=== PATIENT | female | born 1955 | race Caucasian/White ===

== ENCOUNTER 2019-10-19 21:18 | Inpatient (IN) ==
[2019-10-19] MEDS ORDERED: ASPIRIN PO ONE ×2 (21:56→22:15)
[2019-10-19 22:19] LABS: BASO# 0.05 X1000 (0.0-0.2); BASO% 0.5 % (0.0-0.8); EOS# 0.11 X1000 (0.0-0.7); EOS% 1.1 % (0.0-10.0); HEMATOCRIT 39.7 % (37.0-47.0); HEMOGLOBIN 13.7 g/dL (12.0-16.0); IMM GRAN# 0.04 X1000 (0.0-0.04); IMM GRAN% 0.4 % (0.0-0.5); LYMPH# 2.85 X1000 (1.2-3.4); LYMPH% 28.1 % (20.5-51.1); MCH 30.9 PG (27-31); MCHC 34.5 g/dL (33-37); MCV 89.6 FL (81-99); MONO# 1.19 X1000 (0.11-0.59); MONO% 11.7 % (1.7-9.3); MPV 11.6 FL (7.4-10.4); NEUT# 5.91 X1000 (1.4-6.5); NEUT% 58.2 % (42.2-75.2); PLT 234 X1000 (130-400); RBC 4.43 XMIL (4.2-5.4); RDW 12.3 % (11.5-14.5); WBC 10.15 X1000 (4.8-10.8)
[2019-10-19 22:28] LABS: AGAP 12; BUN 12 mg/dL (8-22); CALCIUM 9.3 mg/dL (8.8-10.2); CHLORIDE 90 mmol/L (98-107); COSMO 263; CREATININE 0.7 mg/dL (0.5-0.9); ESTIMATED GFR > 60; GLUCOSE 108 mg/dL (70-104); POTASSIUM 3.7 mmol/L (3.5-5.1); SODIUM 131 mmol/L (136-145); TCO2 29 mmol/L (25-35)
[2019-10-19] MEDS ORDERED: NS 250 ML IV ONE (22:43)
--- NOTE | 2019-10-19 22:58 | PROVIDER DOCUMENTATION ---
This chart was entered by Fawn Thomas Scribe, acting as scribe for Stephanie Coats MD. HPI-Chest Pain - General Chief Complaint: Chest Pain Stated Complaint: CHEST PAIN Time Seen by Provider: 10/19/19 21:31 Source: patient Allergies/Adverse Reactions: Patient Allergies Allergy/AdvReac Type Severity Reaction Status Date / Time egg Allergy Unknown Verified 10/19/19 21:48 Penicillins Allergy RASH Verified 10/19/19 21:48 Home Medications: Home Medication List Medication Instructions Recorded Confirmed Last Taken Type Citalopram [Celexa] 40 mg PO DAILY 06/28/13 10/19/19 Unknown History Losartan [Cozaar] 50 mg PO DAILY 06/28/13 10/19/19 Unknown History Divalproex E.r. [Depakote ER] 500 mg PO QHS 10/19/19 10/19/19 Unknown History Estradiol [Yuvafem] 10 mg PO DIRECTED 10/19/19 10/19/19 Unknown History Hydrochlorothiazide 50 mg PO QAM 10/19/19 10/19/19 Unknown History Metoprolol Succinate E.r. [Toprol 12.5 mg PO QAM 10/19/19 10/19/19 Unknown History Xl] Risperidone [Risperdal] 2 mg PO BID 10/19/19 10/19/19 Unknown History - History of Present Illness-CP Nature of Presenting Problem: 64 y/o female with history of hypertension and hyperlipidmia presents to the ED with complaint of mid sternal pressure type chest pain worsening with exertion as well as worsening dyspnea for the past week but much worse and associated with nausea today. Denies diaphoresis. She states she is barely able to make it up her stairs which is abnormal for her. Location: reports: substernal Chest Pain Radiation: reports: no radiation Quality of Pain: reports: pressure Onset/Duration: 1 week ago Timing: getting worse Context/Activities at Onset: reports: light activity Modifying Factors: worse with: exercise, movement Associated Symptoms: reports: nausea. denies: diaphoresis Nitro Today/Relief: no nitro taken today Aspirin Treatment Today: 81 mg x 3 Prior Chest Pain/Cardiac Workup: reports: no prior cardiac workup Similar Symptoms Previously?: No Recently Seen Here or By Another Healthcare Provider: No Review of Systems - Adult - REVIEW OF SYSTEMS - ADULT Constitutional: reports: no symptoms reported Eyes: reports: no symptoms reported Ears, Nose, Mouth & Throat: reports: no symptoms reported Cardiovascular: reports: chest pain. denies: palpitations, syncope Respiratory: reports: dyspnea on exertion, shortness of breath. denies: cough Gastrointestinal: reports: nausea. denies: diarrhea, vomiting Genitourinary: reports: no symptoms reported Musculoskeletal: reports: no symptoms reported Integumentary: reports: no symptoms reported Neurological: reports: no symptoms reported Psychiatric: reports: no symptoms reported Endocrine: reports: no symptoms reported Hematologic/Lymphatic: reports: no symptoms reported Allergic/Immunologic: reports: no symptoms reported All Other Systems: Reviewed and Negative Past History - Adult - PAST MEDICAL HISTORY-ADULT Review of Records: reports: Old Records Reviewed, Nursing Assessment Review, Medications Reviewed Major Childhood Illnesses: reports: denies history Cardiovascular: reports: HTN, hyperlipidemia Respiratory: reports: asthma Gastrointestinal: reports: denies history Obstetrical/Gynecological: reports: denies history Genitourinary: reports: denies history Musculoskeletal: reports: denies history Neurological: reports: denies history Psychiatric: reports: bipolar Endocrine/Immune: reports: denies history Other Conditions: reports: denies history - PRIOR SURGERIES/PROCEDURES Surgical/Procedure History: reports: hysterectomy, other (nose surgery, breast augmentation) - IMMUNIZATION STATUS Childhood Immunizations: See Nurse Assessment Flu Vaccine: See Nurse Assessment - FAMILY HISTORY Family History: reviewed, not pertinent - SOCIAL HISTORY Smoking: non-smoker Physical Exam-General - PHYSICAL EXAM-ADULT Initial Vital Signs Reviewed: Yes - CONSTITUTIONAL General Appearance: alert, no apparent distress - EYES Eyes: PERRL/EOMI - HEAD, EARS, NOSE, MOUTH & THROAT HENMT: normocephalic/atraumatic, moist mucous membranes - NECK Neck: full range of motion, supple - RESPIRATORY Respiratory: chest non-tender, lungs clear, normal breath sounds. negative: rales, rhonchi, wheezing - CARDIOVASCULAR Cardiovascular: normal peripheral pulses, regular rate, rhythm - GASTROINTESTINAL (ABDOMEN) Abdominal Exam: non tender, soft - MUSCULOSKELETAL Extremity: normal gait, no pedal edema - SKIN Integumentary: normal color, warm/dry - NEUROLOGIC Neurologic: grossly normal, no motor/sensory deficits - PSYCHIATRIC Psych/Mental Status: normal mood/affect, normal thought content, normal thought process - HEART Score HEART Score: History: Highly Suspicious HEART Score: ECG: Normal HEART Score: Age: 45-65 Years HEART Score: Risk Factors for Atherosclerotic Disease: 1 or 2 Risk Factors HEART Score: Troponin: < or = Normal Limit Total HEART Score:: 4 Progress - PLAN OF CARE/RESULTS Progress/Plan/Lab Results: Vital Signs - 8 hr 10/19/19 21:22 Temperature 98.6 F Pulse Rate 73 Respiratory Rate 18 Blood Pressure 182/86 O2 Sat by Pulse Oximetry 97 Laboratory Results - last 24 hr 10/19/19 10/19/19 10/19/19 21:35 21:35 21:35 WBC RBC Hgb Hct MCV MCH MCHC RDW Std Deviation Plt Count MPV Immature Gran % (Auto) Neut % (Auto) Lymph % (Auto) Lamar % (Auto) Eos % (Auto) Baso % (Auto) Immature Gran # (Auto) Neut # (Auto) Lymph # (Auto) Lamar # (Auto) Eos # (Auto) Baso # (Auto) Sodium 131 L Potassium 3.7 Chloride 90 L Carbon Dioxide 29 Anion Gap 12 BUN 12 Creatinine 0.7 Estimated GFR/1.73 m2 > 60 BUN/Creatinine Ratio 17 Glucose 108 H Calculated Osmolality 263 Calcium 9.3 Troponin T High Sens 9 Dcn-P-Waidjmhvqqa Pept 196 10/19/19 21:35 WBC 10.15 RBC 4.43 Hgb 13.7 Hct 39.7 MCV 89.6 MCH 30.9 MCHC 34.5 RDW Std Deviation 12.3 Plt Count 234 MPV 11.6 H Immature Gran % (Auto) 0.4 Neut % (Auto) 58.2 Lymph % (Auto) 28.1 Lamar % (Auto) 11.7 H Eos % (Auto) 1.1 Baso % (Auto) 0.5 Immature Gran # (Auto) 0.04 Neut # (Auto) 5.91 Lymph # (Auto) 2.85 Lamar # (Auto) 1.19 H Eos # (Auto) 0.11 Baso # (Auto) 0.05 Sodium Potassium Chloride Carbon Dioxide Anion Gap BUN Creatinine Estimated GFR/1.73 m2 BUN/Creatinine Ratio Glucose Calculated Osmolality Calcium Troponin T High Sens Byi-M-Iqhjxhoostk Pept Orders Category Date Time Status IV Insertion ORDERED Care 10/19/19 21:56 Completed CHEST-1 VIEW [RAD] Stat Exams 10/19/19 21:56 Taken BASIC METABOLIC PANEL [CHEM] Stat Lab 10/19/19 21:35 Completed CBC WITH DIFF [HEME] Stat Lab 10/19/19 21:35 Completed PRO B-NATRIURETIC PEPTIDE Stat Lab 10/19/19 21:35 Completed TROPONIN T HIGH SENSITIVITY Stat Lab 10/19/19 21:35 Completed 0.9% Sodium Chloride Inj [Ns] 250 ml Med 10/19/19 22:43 Active IV 999 mls/hr Aspirin Med 10/19/19 21:56 Discontinued 325 mg PO NOW ONE Aspirin Med 10/19/19 22:15 Discontinued 81 mg PO NOW ONE chest pain and [facility] will further evaluate for causes including but not limited to ACS, arrythmia, CHF, pna, ptx, pe Result Diagrams: 10/19/19 21:35 10/19/19 21:35 - REASSESSMENT Reassessment #1 Status: improving (no chest pain or dyspnea will in the ED and ED work up unremarkable but presentation concerning for ACS. Will admit for further evaluation and treatment. Discussed case with Dr. Diaz, Hospitalist who will see and admit pt.) - EKG 1 Time of EKG reading by physician:: 21:27 EKG Read and Signed by:: Stephanie Coats EKG Interpretation (*Must complete 3 of following elements*): Normal Rate: 74 Rhythm: NSR [place]: normal [place] Interval: normal - XRAY 1 XRAY Study: Chest Impression: Normal Departure - Departure Date of Disposition Decision: 10/19/19 Time of Disposition Decision: 22:53 DIAGNOSIS: Chest pain Qualifiers: Chest pain type: unspecified Qualified Code(s): R07.9 - Chest pain, unspecified Disposition: ADMITTED INPATIENT 09 Certified Medical Emergency: Emergent Condition: Good - Critical Care Note This patient required my direct & personal management of CC.: No Attestation - Physician/ JOE Attestation Patient care was provided by Advanced Practice Provider:: No The physician spent face to face time with patient:: Yes Advanced Practice Provider documentation review:: Supervising physician onsite and consulted in the evaluation and care of this patient. The physician did have a face to face encounter with the patient. This chart was documented by the indicated scribe, (Fawn Thomas, Daryn) and accurately reflects the services I performed and decisions made by , Stephanie Coats MD, as attested by the provider's signature.
[2019-10-20] MEDS: NITROGLYCERIN TOP SCH ×4 (00:27→17:27)
[2019-10-20] MEDS: NS 1,000 ML IV SCH ×2 (00:27→13:35)
[2019-10-20] MEDS ORDERED: ESTRADIOL PO SCH (00:57)
[2019-10-20] MEDS: TYLENOL PO PRN ×2 (03:56→17:26)
[2019-10-20] MEDS: MORPHINE IV PRN ×2 (03:56→09:24)
[2019-10-20] MEDS: PRILOSEC PO SCH (06:32)
--- NOTE | 2019-10-20 07:11 | HISTORY AND PHYSICAL ---
CHIEF COMPLAINT: Mid/left-sided chest pain which has been ongoing for several weeks. HISTORY OF PRESENT ILLNESS: Ms. Ana Kee is a 64-year-old female who presents to the hospital because of mid/left-sided chest pain which has been ongoing for several weeks and got worse prior to admission. On a scale of 0 to 10, it is about 8/10. It is dull and constant. It radiates to her back. Is made worse with activity and improved with rest. She has had associated palpitations and shortness of breath. No diaphoresis. She did have a cardiac stress test in January of 2019. She denied having any coronary angiograms in the past. The patient now admitted to the floor now for further management. PAST MEDICAL HISTORY: Hypertension. SOCIAL HISTORY: N cigarette smoking, alcohol, or drug use. ALLERGIES: She is allergic to penicillin. PAST SURGICAL HISTORY: She has had nasal surgery, breast reductive surgery, left knee arthroscopy, surgery on both feet, as well as a hysterectomy. MEDICATIONS: Include the following: Alendronate 70 mg p.o. as directed, citalopram 40 mg p.o. daily, Depakote ER 500 mg p.o. at bedtime, estradiol 10 mg p.o. vaginal as directed, hydrochlorothiazide 50 mg p.o. q.a.m., losartan 50 mg p.o. once a day, metoprolol 12.5 mg p.o. q.a.m., Risperdal 2 mg p.o. at bedtime, simvastatin 20 mg p.o. at bedtime, solifenacin succinate 10 mg p.o. once a day. REVIEW OF SYSTEMS: Constitutional: No fever. CONSTRUCTION SCHEDULER: Has headaches. Eyes: Blurred vision. ENT: No sinus problems or hearing loss. Respiratory: She has a cough. GI: She has nausea but no abdominal pain. : No dysuria. Dermatology: No skin lesions. Hematology: No bleeding problems. Musculoskeletal: Has joint pains. Psychiatry: Has depression. Endocrinology: No thyroid disease or diabetes. Allergic/Immunologic: No symptoms suggestive of allergic rhinitis. PHYSICAL EXAMINATION: VITAL SIGNS: Temperature 98.6 degrees, pulse of 70, respiratory rate 18, blood pressure 182/86, oxygen saturation 97%. HEENT: Atraumatic, normocephalic. She is anicteric. No oral lesions noted. NECK: No lymphadenopathy or thyromegaly. CARDIOVASCULAR SYSTEM: S1, S2. RESPIRATORY SYSTEM: Has evidence of good air entry bilaterally. ABDOMEN: Soft, nontender. No masses felt. EXTREMITIES: No evidence of edema. CENTRAL NERVOUS SYSTEM: No obvious focal deficits noted. LABS: WBCs 10.15, hematocrit is 39.7, with a platelet count of 234,000. D-dimer is 0.39. Sodium is 131, potassium 3.7, chloride is 90, bicarb is 29, BUN is 12, creatinine 0.7. ASSESSMENT AND PLAN: 1. Chest pain, rule out acute coronary syndrome. Place patient on telemetry and get serial cardiac enzymes. Obtain EKG. Maintain patient on aspirin, beta-trent, as well as nitroglycerin paste as needed. Obtain lipid panel. Consult with cardiology. 2. Hypertension. Optimize blood pressure control. 3. Hyperlipidemia. Check lipid panel. 4. Bipolar disorder. Continue appropriate psychiatric medications. 5. Deep vein thrombosis prophylaxis. Lovenox. 6. Gastrointestinal prophylaxis. Proton pump inhibitor. cc: Prosper Beebe MD
--- NOTE | 2019-10-20 07:16 | Diag Imaging Result Doc PS360 ---
EXAM: CHEST-1 VIEW - 10/19/2019 HISTORY: chest pain TECHNIQUE: Portable one view chest COMPARISON: 01/06/2016 FINDINGS: Heart size is normal. The lungs appear clear. There is no pleural effusion or pneumothorax identified. IMPRESSION: No evidence of acute disease. Electronically signed by Walker Allred 10/20/2019 7:14 AM
[2019-10-20] MEDS ORDERED: RISPERDAL PO SCH ×2 (09:00→21:00)
[2019-10-20] MEDS ORDERED: TOPROL XL PO SCH (09:00)
[2019-10-20] MEDS: HYDROCHLOROTHIAZIDE PO SCH (09:30)
[2019-10-20] MEDS: ASPIRIN PO SCH (09:30)
[2019-10-20] MEDS: CELEXA PO SCH (09:31)
[2019-10-20] MEDS: ESTRACE VAGINAL CREAM VAG SCH (09:31)
[2019-10-20] MEDS: COZAAR PO SCH (09:31)
[2019-10-20] MEDS: VESICARE PO SCH (09:52)
--- NOTE | 2019-10-20 11:21 | EKG Report ---
Test Performed on : 10/20/2019 09:27:53 AM Test Reason : CP Blood Pressure : / mmHG Vent. Rate : 068 BPM Atrial Rate : 068 BPM P-R Int : 174 ms QRS Dur : 064 ms QT Int : 408 ms P-R-T Axes : 053 018 049 degrees QTc Int : 433 ms Normal sinus rhythm. Normal ECG When compared with ECG of 20-OCT-2019 08:41, (Unconfirmed) No significant change was found Confirmed by Argelia VAZQUEZ, Reji Gilbert ([id number]) on 10/21/2019 9:25:29 AM
--- NOTE | 2019-10-20 11:25 | EKG Report ---
Test Performed on : 10/19/2019 9:27:17 PM Test Reason : chest pain Blood Pressure : / mmHG Vent. Rate : 074 BPM Atrial Rate : 074 BPM P-R Int : 164 ms QRS Dur : 068 ms QT Int : 402 ms P-R-T Axes : 059 013 054 degrees QTc Int : 446 ms Normal sinus rhythm. Normal ECG When compared with ECG of 14-APR-2017 19:58, No significant change was found Confirmed by Argelia VAZQUEZ, Reji Gilbert ([id number]) on 10/21/2019 9:25:14 AM
--- NOTE | 2019-10-20 11:26 | EKG Report ---
Test Performed on : 10/20/2019 08:41:32 AM Test Reason : CHEST PAIN Blood Pressure : / mmHG Vent. Rate : 072 BPM Atrial Rate : 072 BPM P-R Int : 180 ms QRS Dur : 070 ms QT Int : 402 ms P-R-T Axes : 061 021 048 degrees QTc Int : 440 ms Normal sinus rhythm. Normal ECG When compared with ECG of 19-OCT-2019 21:27, (Unconfirmed) No significant change was found Confirmed by Argelia VAZQUEZ, Reji Gilbert ([id number]) on 10/21/2019 9:25:27 AM
--- NOTE | 2019-10-20 12:47 | CARDIOLOGY CONSULTATION ---
DATE: 10/20/2019 REASON FOR CONSULTATION: Cardiology was consulted for chest pain. HISTORY OF PRESENT ILLNESS: Ms. Ana Ramirez is a 64-year-old, lady, who presented to the hospital with left-sided retrosternal chest pain. She has been having this chest pain going on for at least 4 to 6 weeks. Gradually, symptoms have gotten worse. She comes with complaints of dull retrosternal chest discomfort, she puts it as 8/10, radiating to the back and left shoulder. Symptoms have gradually worsened, and she has also noticed exertional component of chest pain over the last few weeks. She had a Cardiolite stress test in 01/2019. Per patient, this was done at [facility]. They were unremarkable. There is no history of palpitations. She has had some shortness of breath. There is no dizziness or syncope. There is no associated diaphoresis. REVIEW OF SYSTEMS: A 14-point review of systems was done. GI: There is no history of nausea, vomiting, diarrhea. There is no history of hematemesis or melena. Central Nervous System: No focal weakness to suggest a CVA or TIA. Genitourinary: There is no dysuria or hematuria. Respiratory: There is no history of cough, expectoration, hemoptysis. Constitutional: There is no history of fevers or chills. PAST MEDICAL/SURGICAL HISTORY: 1. Hypertension. 2. Hyperlipidemia. 3. Left knee arthroscopy. 4. Surgery on both feet. 5. Hysterectomy. 6. Breast reductive surgery. 7. Bipolar disorder. 8. Gastroesophageal reflux disease. HOME MEDICATIONS: Include alendronate 70, simvastatin 20, VESIcare, Risperdal 2 mg p.o. at bedtime, metoprolol 25 mg every a.m., hydrochlorothiazide 50, Depakote 500 mg p.o. at bedtime, Celexa 40, losartan 50. ALLERGIES: She is allergic to eggs and penicillin. PHYSICAL EXAMINATION: Vital Signs: Blood pressure when she came in was 182/86, today 131/60. Cardiovascular: Normal jugular venous pressure. There is no thyromegaly. No carotid bruit. First and second heart sounds were heard. There was no S3 gallop. Abdomen: Soft, nontender. There was no guarding or rigidity. Bowel sounds were heard. Central Nervous System: Alert and oriented, was moving all 4 extremities. Extremities: No pedal edema. HEENT: Atraumatic, normocephalic. Pupils were equal and reacting to light. Neck: No lymphadenopathy. Trachea was central. No thyromegaly. LABORATORY DATA: WBC 10.15, RBC 4.43, hematocrit 30.7, platelet count 234,000. Sodium 131, potassium 3.5, BUN 12, creatinine 0.7. Cardiac enzymes negative. SOCIAL HISTORY: The patient does not smoke, does not drink. FAMILY HISTORY: Her mother had coronary artery disease in her 30s. Father had stroke. Siblings do not have any known coronary artery disease. ASSESSMENT AND PLAN: Ms. Ana Ramirez is a 64-year-old, lady with history of hypertension, hyperlipidemia, bipolar disorder, strong family history of coronary artery disease, who comes with complaints of anginal symptoms. She has been ruled out for myocardial infarction by cardiac enzymes. Electrocardiogram was unremarkable. Given her ongoing symptoms, the patient has unstable angina. Given this, I have recommended that she undergo a left heart catheterization. Risks, benefits, and alternatives were explained. The patient will be set up for left heart catheterization in the morning. Per patient, she had a stress test echocardiogram done at [facility], which was unremarkable last year. For hypertension, continue with her current medications. For bipolar disorder, continue with her home medications. For hyperlipidemia, continue with simvastatin. Thank you for the consult. Will follow hospital course. cc: Joe Arteaga MD
[2019-10-20 13:56] LABS: URINE SOURCE CLEAN CATCH
[2019-10-20 14:05] LABS: BILIRUBIN URINE NEGATIVE (NEGATIVE); BLOOD URINE NEGATIVE (NEGATIVE); COLOR STRAW; GLUCOSE URINE NEGATIVE (NEGATIVE); KETONE URINE NEGATIVE (NEGATIVE); LEUKOCYTES URINE MODERATE (NEGATIVE); NITRITE URINE NEGATIVE (NEGATIVE); PROTEIN URINE NEGATIVE (NEGATIVE); SP GRAVITY URINE 1.006; TURBIDITY URINE CLEAR (CLEAR); UROBILINOGEN URINE NORMAL (NORMAL)
[2019-10-20 14:07] LABS: UR EPITHELIAL CELLS <10 /HPF (<10); URINE BACTERIA NEGATIVE /HPF; URINE RBC <10 /HPF (<10)
[2019-10-20] MEDS: TOPROL XL PO SCH (20:24)
[2019-10-20] MEDS ORDERED: DEPAKOTE ER PO SCH (21:00)
[2019-10-20] MEDS ORDERED: ZOCOR PO SCH (21:00)
[2019-10-21] MEDS: NITROGLYCERIN TOP SCH ×3 (00:28→13:12)
[2019-10-21] MEDS: NS 1,000 ML IV SCH ×2 (00:28→04:46)
[2019-10-21] MEDS: PRILOSEC PO SCH (06:33)
[2019-10-21 07:39] LABS: HEMOGLOBIN 13.2 g/dL (12.0-16.0); MCH 31.2 PG (27-31); MCV 94.6 FL (81-99); RBC 4.23 XMIL (4.2-5.4); RDW 13.2 % (11.5-14.5); WBC 7.58 X1000 (4.8-10.8)
[2019-10-21 07:40] LABS: INR 0.96; PROTIME 12.9 Seconds (11.0-16.0)
[2019-10-21 07:49] LABS: CHOLESTEROL 159 mg/dL (0-200); HDL 49 mg/dL (45-65); LDL 79 mg/dL; TRIGLYCERIDES 157 mg/dL (35-135); VLDL 31 mg/dL
[2019-10-21 08:14] LABS: AGAP 9; BUN 7 mg/dL (8-22); CALCIUM 8.7 mg/dL (8.8-10.2); CHLORIDE 101 mmol/L (98-107); COSMO 273; CREATININE 0.6 mg/dL (0.5-0.9); ESTIMATED GFR > 60; GLUCOSE 90 mg/dL (70-104); POTASSIUM 3.6 mmol/L (3.5-5.1); SODIUM 138 mmol/L (136-145); TCO2 28 mmol/L (25-35)
[2019-10-21] MEDS ORDERED: HEPARIN 1000 UNITS/NS 2,000 UNIT/1,000 ML IV.SOLN ONE (08:35)
[2019-10-21] MEDS ORDERED: ISOPTIN ONE (08:46)
[2019-10-21] MEDS ORDERED: LOVENOX SUBQ SCH (09:00)
[2019-10-21] MEDS: ASPIRIN PO SCH (09:31)
[2019-10-21] MEDS: CELEXA PO SCH (09:32)
[2019-10-21] MEDS: COZAAR PO SCH (09:32)
[2019-10-21] MEDS: HYDROCHLOROTHIAZIDE PO SCH (09:32)
[2019-10-21] MEDS: ESTRACE VAGINAL CREAM VAG SCH (09:32)
[2019-10-21] MEDS: TOPROL XL PO SCH (09:33)
[2019-10-21] MEDS: VESICARE PO SCH (09:33)
[2019-10-21] MEDS ORDERED: DILAUDID ONE (09:37)
[2019-10-21] MEDS ORDERED: VERSED ONE (09:37)
--- NOTE | 2019-10-21 10:39 | CARDIAC CATH REPORT ---
PROCEDURE NAME: - CHIEF COMPLAINT: Unstable angina. PROCEDURES PERFORMED: 1. Left heart catheterization. 2. Selective coronary angiography. 3. Left ventriculogram. PROCEDURE IN DETAIL: Ms. Ramirez was brought to the catheterization laboratory in a fasting state. Informed consent was obtained. Prepped in the usual fashion. She was anesthetized over the right radial after an Reji's test proved adequate. A 5-Kazakh sheath was placed via true Seldinger technique. A radial cocktail was administered. Catheters were introduced. Hemodynamic measurements were made in the ascending thoracic aorta. Coronary angiography was performed in multiple views using JL3.5 and JR4 diagnostic catheters. Left heart catheterization and left ventriculogram were performed using the JR4. At the conclusion of the procedure, all sheaths and catheters were removed. There was 60 mL of IV contrast and 5-10 mL of blood loss. No apparent complications. FINDINGS: 1. The left main originates from the left coronary cusp. It appears normal. 2. The left anterior descending originates from the left main. It appears angiographically normal throughout its course. It does wrap around and supplies a significant portion of the distal inferior wall. In the late mid vessel, there does appear to be a possible area of a myocardial bridge. 3. The circumflex originates from the left main. It is a large, normal vessel. 4. The right coronary artery originates from the right coronary cusp. It is nondominant and angiographically normal. 5. Ejection fraction is 65% with normal wall motion. 6. Left ventricle pressure 131/5 with an LVEDP of 16. Aortic blood pressure 134/60 with a mean of 93. ASSESSMENT: Ms. Ramirez is a 64-year-old female who presented with chest pain, concerning for unstable angina. PLAN: She has no flow-limiting lesions. She has essentially angiographically normal arteries. Her EDP was 16, ejection fraction of 65%. She appears to have a relatively normal study. I have conveyed this to her primary treating sales technician home theater, Dr. Arteaga. cc: Baljinder Mckeon MD
[2019-10-21 11:30] VITALS: BP 147/77
--- NOTE | 2019-10-21 12:46 | Diag Imaging Result Doc PS360 ---
EXAM: CT THORAX W/O CONTRAST HISTORY: dyspnea TECHNIQUE: CT chest without contrast COMPARISON: None. FINDINGS: Small cyst or nodule in the right lobe of the thyroid. No pleural effusions. No aortic aneurysm. No cardiomegaly. No enlarged lymph nodes. No infiltrates or consolidation. No bronchiectasis. No lung mass identified. No pneumothorax. Limited images through the upper abdomen reveal a cyst within the liver. IMPRESSION: No pneumonia or congestive failure. This exam was performed using automated exposure control, adjustment of mA or kV according to patient size, and/or use of iterative reconstruction technique. Electronically signed by Stevie Roblero 10/21/2019 12:43 PM
--- NOTE | 2019-10-22 03:31 | DISCHARGE SUMMARY ---
ADMISSION DATE: 10/20/2019 DISCHARGE DATE: 10/21/2019 FINAL DISCHARGE DIAGNOSES: 1. Chest pain. 2. Osteoporosis. 3. Hypertension. 4. Gastroesophageal reflux disease. 5. Hyperlipidemia. CONSULTATIONS: Cardiology consultation with Dr. Arteaga. PROCEDURES: Cardiac catheterization performed on 10/21/2019, which revealed normal coronaries. HOSPITAL COURSE: Ms. Ramirez is a 64-year-old female with a history of obesity, hypertension, and depression, who presented to the ER with chest pain and increasing dyspnea. On admission, an EKG was done as well as serial cardiac enzymes which were noted to be unremarkable. Given the patient's age and risk factors, Cardiology was consulted. The patient then underwent a left heart catheterization on 10/21/2019, which revealed normal coronaries. The patient did admit that she had been having an increase in reflux symptoms. The patient was started on omeprazole during the hospitalization, and it was recommended that the patient also follow up with a cna caregiver for possible pulmonary function studies to be done as outpatient. The patient also had a chest CT done that revealed no acute abnormalities. The patient continued to improve clinically and was cleared for discharge home on 10/21/2019. DISCHARGE MEDICATIONS: 1. Alendronate 70 mg as directed. 2. Celexa 40 mg p.o. daily. 3. Depakote 500 mg oral at bedtime. 4. Hydrochlorothiazide 50 mg oral every morning. 5. Cozaar 50 mg oral daily. 6. Toprol-XL 12.5 mg oral every morning. 7. Omeprazole 40 mg oral daily. 8. Risperidone 2 mg oral at bedtime. 9. Simvastatin 20 mg oral at bedtime. 10. VESIcare 10 mg oral daily. DISCHARGE DIET: Low-sodium, low-cholesterol diet. ACTIVITY: As tolerated. FOLLOWUP INSTRUCTIONS: 1. The patient will need to follow up with Dr. Jose Braswell in 2 weeks. 2. The patient will also need to follow up with Dr. Milian as a new patient in 2 to 3 weeks. cc: Maggy Dunne MD
== END 2019-10-21 14:26 | disposition home or self-care (01) | DRG 287 ==
LOC: ED 21:18 → 3N 10-20 00:25 → SUATTDRO 10-20 00:25 → 2N 10-21 10:28
PROVIDERS: ATTEND Internal Medicine